=== PATIENT | female | born 1985 | race Caucasian/White ===

== ENCOUNTER 2020-04-28 12:47 | Outpatient (REF) | payer OTHER, SELFPAY | END 2020-04-28 12:48 | disposition home or self-care (01) | LOC: HO.LAB 12:47 | PROVIDERS: PCP Internal Medicine; Visit Provider Internal Medicine | DX: Z20.828 Contact with and (suspected) exposure to other viral communicable diseases (principal) | CPT/HCPCS: 87635 ==

== ENCOUNTER → 2020-05-27 14:56 | Outpatient (BNVA) | payer OTHER, SELFPAY | PROVIDERS: PCP Internal Medicine; Referring Provider Internal Medicine; Visit Provider Nurse Practitioner | DX: K92.1 Melena (principal); K62.5 Hemorrhage of anus and rectum; R10.33 Periumbilical pain; K58.9 Irritable bowel syndrome, unspecified | CPT/HCPCS: 99212 ==

== ENCOUNTER 2020-06-08 15:26 | Outpatient (REF) | payer OTHER, SELFPAY ==
--- NOTE | 2020-06-08 15:33 | US_ITS ---
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 Prior history contralateral ultrasound-guided biopsy right breast 09/17/2014 (fibroadenoma). COMPARISON: Targeted left breast ultrasound 06/07/2019, 12/04/2018, 06/05/2018. TECHNIQUE: Ultrasound of the breast is performed with real-time davis scale imaging and color Doppler. FINDINGS: The suspected fibroadenoma 3:00 position 7 cm from nipple is macrolobulated and similar in size, echogenicity, and contour to prior studies. Measurements are 1.3 x 1.2 x 0.5 cm. Initial measurements 06/05/2018 are 1.3 x 1.2 x 0.4 cm. The finding is now considered benign. Results are discussed with the patient at time of visit. US/US breast LT limited IMPRESSION: Suspected fibroadenoma 3:00 position is stable from prior studies and now considered benign. ASSESSMENT: BI-RADS 2: Benign RECOMMENDATION: Routine annual mammography screening, beginning age 40, or earlier as clinical risk factors warrant. This patient's information was entered into a reminder system with a target due date for their next mammogram.
[2020-06-08 17:56] LABS: MANUAL DIFF FLAG NO
[2020-06-08 17:57] LABS: Basophils Absolute Auto 0.1 X10*3/uL (0.0-0.2); Basophils Percent Auto 0.6 % (0-2); Eosinophils Absolute Auto 0.2 X10*3/uL (0.0-0.4); Eosinophils Percent Auto 1.8 % (0-4); Hematocrit 36.3 % (37-47); Hemoglobin 11.8 g/dl (12.0-16.0); Imm Gran Abs Auto 0.03 X10*3/uL (0.00-0.03); Imm Gran Pct Auto 0.3 % (0.0-0.4); Lymphocytes Absolute Auto 2.6 X10*3/uL (1.2-4.9); Lymphocytes Percent Auto 29.4 % (20-40); Mean Corpuscular HGB Conc 32.5 g/dl (31.0-35.0); Mean Corpuscular Hemoglobin 29.2 pg (27.0-33.0); Mean Corpuscular Volume 89.9 fL (80-98); Mean Platelet Volume 12.7 fL (9.4-12.3); Monocytes Absolute Auto 0.8 X10*3/uL (0.1-1.2); Monocytes Percent Auto 9.1 % (2-11); Neutrophils Absolute Auto 5.1 X10*3/uL (2.0-8.3); Neutrophils Percent Auto 58.8 % (45-73); Platelet Count 233 X10*3/uL (160-400); Red Blood Count 4.04 X10*6/uL (4.20-5.50); Red Cell Distribution Width 12.9 % (11.0-16.0); White Blood Count 8.7 X10*3/uL (4.8-10.8)
[2020-06-08 18:20] LABS: Alanine Aminotransferase 15 U/L (0-31); Albumin Level 4.2 g/dL (3.5-5.0); Alkaline Phosphatase 62 U/L (39-117); Anion Gap 13 (12-20); Aspartate Amino Transferase 16 U/L (5-31); Bilirubin Total 0.3 mg/dL (0.0-1.0); Blood Urea Nitrogen 14 mg/dL (9-16); C Reactive Protein 0.53 mg/dL (< or = 0.50); Calcium 8.7 mg/dL (8.4-10.2); Carbon Dioxide 25 mmol/L (22-29); Chloride 103 mmol/L (96-108); Estimated Glomerular Filt Rate > 60; Glucose Random 75 mg/dL (60-115); Potassium 4.4 mmol/l (3.3-5.1); Sodium 137 mmol/L (135-145); Total Protein 6.9 g/dL (6.5-8.0)
[2020-06-10 15:56] LABS: Gliadin Deamidated IgA Ab 3 Units; Gliadin Deamidated IgG Ab 3 Units
== END 2020-06-08 15:27 | disposition home or self-care (01) ==
LOC: HO.MAMMO 15:26
PROVIDERS: Absent Provider Nurse Practitioner; PCP Internal Medicine; Visit Provider Internal Medicine
DX: R92.8 Other abnormal and inconclusive findings on diagnostic imaging of breast (principal); R10.33 Periumbilical pain; K58.9 Irritable bowel syndrome, unspecified; K62.5 Hemorrhage of anus and rectum
CPT/HCPCS: 36415; 76642; 80053; 83516; 85025; 86140

== ENCOUNTER 2020-06-22 08:58 | Outpatient (REF) | payer OTHER, SELFPAY ==
--- NOTE | 2020-06-22 09:01 | CT_ITS ---
EXAMINATION: CT ABDOMEN AND PELVIS WITH CONTRAST CLINICAL INFORMATION: Periumbilical pain COMPARISON: None TECHNIQUE: Multidetector volumetric images were obtained from the superior aspect of the liver through the pubic symphysis following administration 85 mL of Omnipaque 350 intravenous contrast. Sagittal and coronal reformatted images were obtained on the technologist's workstation. Oral contrast: Yes This CT examination was performed using dose optimization techniques as appropriate, variously including the following: *Automated exposure control *Adjustment of mA and/or kV according to patient size (this includes techniques or standardized protocols for targeted exams where dose is matched to indication/reason for exam; i.e. extremities or head) *Use of iterative reconstruction technique DLP: 393 mGy-cm FINDINGS: LUNG BASES: The visualized lung bases are unremarkable. LIVER, GALLBLADDER, AND BILIARY TREE: The liver is normal in size, shape, and attenuation. No focal hepatic lesion or biliary ductal dilatation is present. The gallbladder is unremarkable with no evidence of radiopaque gallstones, gallbladder wall thickening, or obvious pericholecystic inflammatory changes. PANCREAS: Unremarkable. SPLEEN: Unremarkable. ADRENAL GLANDS: Unremarkable. KIDNEYS AND URETERS: The kidneys are normal in size, shape, and attenuation. No hydronephrosis, hydroureter, or calculi seen. No perinephric stranding. BLADDER: Bladder is empty and not well evaluated. GASTROINTESTINAL TRACT: The small and large bowel are unremarkable. The appendix is unremarkable. ABDOMINAL WALL: There is an umbilical hernia containing fat. LYMPH NODES: Normal. VASCULAR: Unremarkable. PELVIC VISCERA: Unremarkable. OSSEOUS STRUCTURES: Unremarkable. CT/CT abdomen pelvis w con IMPRESSION: Small umbilical hernia containing fat otherwise unremarkable exam.
== END 2020-06-22 08:59 | disposition home or self-care (01) ==
LOC: HO.CT 08:58
PROVIDERS: PCP Internal Medicine; Visit Provider Nurse Practitioner
DX: R10.33 Periumbilical pain (principal)
CPT/HCPCS: 74177

== ENCOUNTER → 2020-06-30 08:25 | Outpatient (BNVA) | payer OTHER, SELFPAY | PROVIDERS: PCP Internal Medicine; Referring Provider Internal Medicine; Visit Provider Advanced Practice Midwife | DX: Z76.89 Persons encountering health services in other specified circumstances (principal) ==

== ENCOUNTER → 2020-07-27 15:07 | Outpatient (BNVA) | payer OTHER, SELFPAY | PROVIDERS: PCP Internal Medicine; Visit Provider Obstetrics & Gynecology | DX: Z76.89 Persons encountering health services in other specified circumstances (principal) ==

== ENCOUNTER → 2020-08-13 16:22 | Outpatient (BNVA) | payer OTHER, SELFPAY | PROVIDERS: PCP Internal Medicine; Visit Provider Advanced Practice Midwife ==

== ENCOUNTER → 2020-08-17 11:42 | Outpatient (BNVA) | payer OTHER, SELFPAY | PROVIDERS: PCP Internal Medicine; Visit Provider Nurse Practitioner ==

== ENCOUNTER → 2020-09-09 14:23 | Outpatient (BNVA) | payer OTHER, SELFPAY | PROVIDERS: Visit Provider Obstetrics & Gynecology | DX: Z30.2 Encounter for sterilization (principal) | CPT/HCPCS: 99212 ==

== ENCOUNTER 2020-09-18 07:58 | Day surgery (SDC) | payer OTHER, SELFPAY ==
[2020-09-10 20:26] VITALS: BMI 30.2
--- NOTE | 2020-09-16 11:49 | P.CONAN_ITS ---
Documented by User: Ashlee Marialuisa 09/16/20 11:50 HPI - Anesthesia Eval Consult details Narrative: 34yo F for Salpingectomy Laproscopic, Bilateral PMFSH Active Problems Active Problems: All Active Problems (Updated 09/10/20 @ 20:28 by Jeri Dixon, AMNA) Urinary incontinence, urge (Acute) Bulging of cervical intervertebral disc (Acute) Fibroadenoma of left breast (Acute) Periumbilical abdominal pain (Acute) IBS (irritable bowel syndrome) (Acute) Rectal bleeding (Acute) Atypical rash (Acute) Well woman exam with routine gynecological exam (Acute) Surveillance for control, oral contraceptives (Acute) Family planning advice (Acute) Lactose intolerance (Acute) Sterilization (Acute) Past Medical History Medical History (Updated 09/18/20 @ 08:45 by Katerin Mejia) Anemia Bulging of cervical intervertebral disc GERD (gastroesophageal reflux disease) Hx LEEP (loop electrosurgical excision procedure), cervix, Melena Family History Family History Father Family history of high blood pressure History of high cholesterol Mother Family history of high blood pressure History of high cholesterol Surgical History Surgical History H/O shoulder surgery Social History Social History Alcohol intake: current Alcohol intake frequency: holidays/special occasions only Alcohol type: wine Smoking Status: Never smoker Use of substances other than those prescribed or required for medical reasons: No Advance Directives: No Advance Directives Information Provided: No Advance Directives on File: No Gender identity: female Meds Allergies Allergy/AdvReac Type Severity Reaction Status Date / Time No Known Allergies Allergy Verified 09/09/20 14:37 Home Medications Medication Instructions Recorded Confirmed Last Taken Type ascorbic acid (vitamin C) [Vitamin 2,000 mg PO DAILY 09/10/20 09/10/20 Unknown History C] cholecalciferol (vitamin D3) 100 mcg PO DAILY 09/10/20 09/10/20 Unknown History [Vitamin D3] ferrous sulfate 27 mg PO DAILY 09/10/20 09/10/20 Unknown History multivitamin [Multi-Vitamins] 1 tab PO DAILY 09/10/20 09/10/20 Unknown History omeprazole 20 mg PO DAILY PRN 09/10/20 09/10/20 09/18/20 History vitamin [id number] acid 1 tab PO DAILY 09/10/20 09/10/20 Unknown History Exam Exam Date and Time: September 16, 2020 1149 Height,Weight and Vital Signs: Height 5 ft 2 in Weight 74.843 kg Pertinent Lab Results Pertinent Lab Results: Laboratory Tests 06/08/20 06/08/20 16:25 16:25 WBC 8.7 Hgb 11.8 L Hct 36.3 L Plt Count 233 Sodium 137 Potassium 4.4 Chloride 103 Carbon Dioxide 25 BUN 14 Creatinine 0.85 Assessment and Plan Assessment Anesthesia Assessment: Chart Reviewed Documented by User: Katerin Mejia 09/18/20 08:45 [facility] Past Medical History Medical History (Updated 09/18/20 @ 08:45 by Katerin Mejia) Anemia Bulging of cervical intervertebral disc GERD (gastroesophageal reflux disease) Hx LEEP (loop electrosurgical excision procedure), cervix, Melena Family History Family History Father Family history of high blood pressure History of high cholesterol Mother Family history of high blood pressure History of high cholesterol Family history of problems with anesthesia: No Surgical History Surgical History H/O shoulder surgery History of Problems with Anesthesia: No Social History Social History Alcohol intake: current Alcohol intake frequency: holidays/special occasions only Alcohol type: wine Smoking Status: Never smoker Use of substances other than those prescribed or required for medical reasons: No Advance Directives: No Advance Directives Information Provided: No Advance Directives on File: No Gender identity: female Meds Allergies Allergy/AdvReac Type Severity Reaction Status Date / Time No Known Allergies Allergy Verified 09/09/20 14:37 Home Medications Medication Instructions Recorded Confirmed Last Taken Type ascorbic acid (vitamin C) [Vitamin 2,000 mg PO DAILY 09/10/20 09/10/20 Unknown History C] cholecalciferol (vitamin D3) 100 mcg PO DAILY 09/10/20 09/10/20 Unknown History [Vitamin D3] ferrous sulfate 27 mg PO DAILY 09/10/20 09/10/20 Unknown History multivitamin [Multi-Vitamins] 1 tab PO DAILY 09/10/20 09/10/20 Unknown History omeprazole 20 mg PO DAILY PRN 09/10/20 09/10/20 09/18/20 History vitamin [id number] acid 1 tab PO DAILY 09/10/20 09/10/20 Unknown History Exam Height,Weight and Vital Signs: Vital Signs Temp Pulse Resp BP Pulse Ox 09/18/20 08:33 99.2 F 83 16 124/73 97 Pertinent Lab Results Pertinent Lab Results: Lab Results 09/18/20 Range/Units 08:06 Urine Test NEGATIVE (NEGATIVE) Airway Mallampati Class: II TM Dist: >3cm Neck ROM: Full Heart: RRR Lungs: CTAB Assessment and Plan Assessment Anesthesia Assessment: Anesthesia Plan Discussed and Chart Reviewed Final Anesthetic Review NPO: Yes ASA Class: II Final Preanesthetic Review: No Changes in Pt Med Stat, Meds/Allgs Chart Reviewed, Consent Obtained/Reviewed and Anes Risks/Benef Reviewed Patient Risk: Low Procedure Risk: Intermediate Assessment/Block/Sedation in SS: Assess/Block/Sedation-SS Anesthetic Plan Anesthetic Plan: GA Disposition: Standard PACU
[2020-09-18] VITALS (14 sets, daily range): BP systolic 95–128; BP diastolic 43–75; PULSE 58–92; RESP 10–16; TEMP 36.1–37.3; O2SAT 90–100
[2020-09-18 08:18] LABS: UPreg QC Valid YES; Urine Pregnancy NEGATIVE (NEGATIVE)
[2020-09-18] MEDS: Acetaminophen 325 MG TABLET 650 MG PO (08:29)
--- NOTE | 2020-09-18 08:40 | MHC.SHP ---
Pre-Procedural Eval Section A The patient is an INPATIENT: No Changes since office visit: No Cold of Flu in the past 2 weeks, No New Medical Problems, No Changes in Medication and No Patient answered all questions The History & Physical has been completed within 30 days and I have reviewed it.: Yes Section B Chief Complaint: desires sterilization Allergies: Allergies Allergy/AdvReac Type Severity Reaction Status Date / Time No Known Allergies Allergy Verified 09/09/20 14:37 Plan Diagnosis/Plan: Unchanged I have reviewed the history and physical and performed a pertinent physical examination on my patient. No changes have occurred unless specified.
[2020-09-18] MEDS: Lactated Ringers 1,000 ML 100 ML IVCONT (08:45)
--- NOTE | 2020-09-18 09:58 | PM.OP ---
Brief Operative Note Date of Service: 09/18/20 Pre-op diagnosis: Completed family requesting permanent sterilization Post-op diagnosis: same Procedure: Laparoscopic bliateral salpingectomy Surgeon: Adin Griffith MD Anesthesia: GETA Estimated blood loss (mL): 0 Pathology: other (Right & left fallopian tubes) Condition: stable Disposition: PACU
--- NOTE | 2020-09-18 09:59 | P.OP_ITS ---
Operative Note Operative Note Date of Service: 09/18/20 Narrative: PREOPERATIVE DIAGNOSIS:?Completed family requesting?permanent sterilization POSTOPERATIVE DIAGNOSIS:?Completed family requesting?permanent sterilization QBL: Minimal Anesthesia: GETA SURGEON:? Adin Griffith MD?? Mold Finisher: Complications: None Pathology: Right and left Fallopian tubes? DESCRIPTION OF PROCEDURE:?The patient was taken to the OR where general anesthesia was easily obtained. The patient was then prepped and draped in a sterile fashion and placed in dorsal lithotomy position. A speculum was introduced into the patient?s vagina for cervical visualization. Once the cervix was visualized, a single-toothed tenaculum was applied to the upper lip of the cervix, and a Humi manipulator was introduced into the patient?s cervix. The single tooth tenaculum was then removed and hemostasis was assured?using pressure. a Boucher catheter?was inserted and clear urine started draining. Gloves were changed to clean ones. Attention was then drawn to the abdomen where a 10 mm longitudinal incision was done intra umbilical and carried down all the way to the fascia, which was tented?up using 2 Yfn clamps and was nicked in the midline and then extended on both end of the incision?, them using 2 pick?ups the peritoneum?was entered with Metzenbaum scissors and under direct visualization, a 10 mm Mitchell trocar was introduced into the patient?s abdomen. Once intraperitoneal placement was confirmed with direct visualization, pneumoperitoneum was started & was easily obtained.Then, two fingerbreadths above the pubic symphysis and towards the?right lower quadrant, under direct visualization, a 5 mm trocar was then introduced into the patient?s abdomen. and a 3rd one on the left?lower quadrant was placed?in a similar manner. The patient was placed in Trendelenburg position, Inspection revealed normal pelvic stru ctures & bilateral ovaries and fallopian tubes. Attention was then drawn to the left fallopian tube. The IP ligament was identified and fallopian tube was then grasped by the fimbria and incised from the mesosalpinx using ligasure device, using cautery for hemostasis and cutting afterwards a bite at a time all the way to the cornual end of the left tube. The same was done?on the?right fallopian tu be. Good hemostasis was noted from both fallopian tube sites and the operative site. Specimen were then removed from the patient?s abdomen. Copious irrigation was done. Once good hemostasis was noted from the patient?s abdomen, pneumoperitoneum was deflated and all trocars were removed. Infraumbilical fascia was closed with 0 Vicryl and interrupted suture. The skin was closed with 4-0 Vicryl. The Right and left?lower quadrant ports were closed with 0 Vicryl. Bupivicaine 0.25 10 cc were injected subcuticularly in the 3 incisions. Then speculum was put back in the vagina inspection revealed?hemostasis at the site of the tenaculum, the?humi manipulator was removed? and Boucher was draining clear urine was taken out too. Sponge, lap and needle counts were correct x2. The patient was taken to the recovery room in stable condition.
[2020-09-18] MEDS: fentaNYL citrate/PF 100 MCG/2 ML VIAL 25 MCG IVPUSH ×4 (10:10→10:44)
[2020-09-18] MEDS: oxyCODONE HCl Immed Release 5 MG TABLET PO (10:33)
== END 2020-09-18 12:43 | disposition home or self-care (01) ==
PROVIDERS: Nurse Practitioner; PCP Internal Medicine; Visit Provider Obstetrics & Gynecology
PROC: (CPT 58661; principal; 2020-09-18 09:10)
DX: Z30.2 Encounter for sterilization (principal); D64.9 Anemia, unspecified; Z79.899 Other long term (current) drug therapy
CPT/HCPCS: 58661; 81025; 86850; 86900; 86901; 88302; J1100; J1885; J2250; J2370; J2405; J2765; J3010

== ENCOUNTER → 2020-10-01 11:16 | Outpatient (BNVA) | payer OTHER, SELFPAY | PROVIDERS: PCP Internal Medicine; Visit Provider Obstetrics & Gynecology ==